=== PATIENT | male | born 1985 | race Hispanic/Latino ===

== ENCOUNTER 2021-01-07 01:49 | Emergency (ER) | payer SELFPAY | END 2021-01-07 03:02 | disposition home or self-care (01) | LOC: ERS 01:49 | DX: J02.9 Acute pharyngitis, unspecified (principal); Z87.891 Personal history of nicotine dependence | CPT/HCPCS: 99283 ==

== ENCOUNTER 2024-04-13 02:53 | Emergency (ER) | payer BC, SELFPAY ==
[2024-04-13] MEDS ORDERED: Ketorolac Tromethamine 30 MG (1 mL) VIAL ONE (03:42)
[2024-04-13] MEDS ORDERED: HYDROcodone/Acetaminophen 10/325 mg Tablet ONE (03:43)
== END 2024-04-13 04:05 | disposition home or self-care (01) ==
LOC: ERS 02:53
DX: K02.9 Dental caries, unspecified (principal); K04.7 Periapical abscess without sinus; Z87.891 Personal history of nicotine dependence
CPT/HCPCS: 96372; 99282; J1885

== ENCOUNTER 2025-06-13 08:06 | Emergency (ER) | payer BC ==
[2025-06-13] MEDS ORDERED: Ketorolac Tromethamine 30 MG (1 mL) VIAL ONE (08:51)
[2025-06-13] MEDS ORDERED: Amoxicillin/Potassium Clav 875 MG TAB ONE (08:51)
== END 2025-06-13 09:06 | disposition home or self-care (01) ==
LOC: ERS 08:06
DX: K08.89 Other specified disorders of teeth and supporting structures (principal); Z87.891 Personal history of nicotine dependence
CPT/HCPCS: 96372; 99282; J1885